=== PATIENT | male | born 1950 | race Caucasian/White ===

== ENCOUNTER 2023-07-19 09:05 | Emergency (ER) | payer MEDICARE, SELFPAY ==
--- NOTE | ~2023-07-19 | CT_ITS ---
EXAMINATION: CT ABDOMEN AND PELVIS WITHOUT CONTRAST CLINICAL INFORMATION: Right flank pain COMPARISON: None available. TECHNIQUE: Multidetector volumetric imaging was performed from the superior aspect of the liver through the pubic symphysis. Sagittal and coronal reformatted images were obtained on the technologist's workstation. This CT examination was performed using dose optimization techniques as appropriate, variously including the following: *Automated exposure control *Adjustment of mA and/or kV according to patient size (this includes techniques or standardized protocols for targeted exams where dose is matched to indication/reason for exam; i.e. extremities or head) *Use of iterative reconstruction technique DLP: 842 mGy-cm FINDINGS: LUNG BASES: The visualized lung bases are unremarkable. LIVER, GALLBLADDER, AND BILIARY TREE: The liver is normal in size, shape, and attenuation. No focal hepatic lesion or biliary ductal dilatation is present. The gallbladder is unremarkable with no evidence of radiopaque gallstones, gallbladder wall thickening, or obvious pericholecystic inflammatory changes. PANCREAS: Unremarkable. SPLEEN: Unremarkable. ADRENAL GLANDS: Unremarkable. KIDNEYS AND URETERS: The kidneys are normal in size, shape, and attenuation. No hydronephrosis, hydroureter, or calculi seen. No perinephric stranding. BLADDER: Unremarkable. GASTROINTESTINAL TRACT: Patient is status post appendectomy with surgical sutures seen in the cecum. No evidence of diverticulitis, diverticulosis. No evidence of colitis. Small bowel loops are unremarkable. Mesentery is normal. ABDOMINAL WALL: No significant hernia is appreciated. LYMPH NODES: Normal. VASCULAR: Unremarkable. PELVIC VISCERA: Unremarkable. OSSEOUS STRUCTURES: There are mild degenerative changes with narrowing canal: Phenomenon at the level of L5-S1 and mild facet arthropathy CT/CT abdomen pelvis wo IV con IMPRESSION: No explanation for right flank pain. Status post appendectomy. Fleischner guidelines were followed.
[2023-07-19 09:09] VITALS: BP 157/82; PULSE 58; RESP 16; TEMP 36.8; O2SAT 98; BMI 31.9
[2023-07-19 09:29] LABS: MANUAL DIFF FLAG NO
[2023-07-19 09:31] LABS: Basophils Absolute Auto 0.1 X10*3/uL (0.0-0.2); Basophils Percent Auto 0.9 % (0-2); Eosinophils Absolute Auto 0.2 X10*3/uL (0.0-0.4); Hematocrit 45.3 % (42.0-52.0); Hemoglobin 15.2 g/dl (14.0-18.0); Imm Gran Abs Auto 0.02 X10*3/uL (0.00-0.03); Imm Gran Pct Auto 0.3 % (0.0-0.4); Lymphocytes Absolute Auto 1.5 X10*3/uL (1.2-4.9); Lymphocytes Percent Auto 19.9 % (20-40); Mean Corpuscular HGB Conc 33.6 g/dl (31.0-36.0); Mean Corpuscular Hemoglobin 29.6 pg (27.0-33.0); Mean Corpuscular Volume 88.1 fL (80.0-98.0); Mean Platelet Volume 8.8 fL (9.4-12.4); Monocytes Absolute Auto 0.6 X10*3/uL (0.1-1.2); Monocytes Percent Auto 7.8 % (2-11); Neutrophils Absolute Auto 5.2 x10*3/uL (2.0-8.3); Neutrophils Percent Auto 68.1 % (45-73); Platelet Count 203 X10*3/uL (160-400); Red Blood Count 5.14 X10*6/uL (4.60-5.80); Red Cell Distribution Width 13.3 % (11.0-16.0); White Blood Count 7.6 X10*3/uL (4.8-10.8)
--- NOTE | 2023-07-19 09:39 | ED_ITS ---
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 He has had back surgery in the past many years ago - unsure what levels but has scar in lumbar area. He has not had kidney stones in the past. He is very uncomfortable moving and cannot bend over. He is not sure about hematuria. He did not injury his back. He has no b/b incontinence no saddle anesthesia. MD elicited complaint: back pain Pertinent past history: prior back pain Onset (ago): hour(s) (6) Timing: constant Severity: moderate Similar Symptoms Previously: No Quality: sharp Location: right flank Radiation: abdomen and groin Exacerbating factors: movement Relieving factors: none Context: unknown Associated symptoms: denies other symptoms Work related injury: No Related Data Previous Rx's Medication Instructions Recorded lidocaine 4 % topical patch 1 patch topical DAILY PRN pain #10 07/19/23 ea morphine 15 mg immediate release 15 mg PO Q6H PRN pain #15 tabs 07/19/23 tablet Allergies Allergy/AdvReac Type Severity Reaction Status Date / Time No Known Allergies Allergy Unverified 08/04/20 15:18 Review of Systems Review of Systems: Constitutional : No Weight loss, No Fever, No Chills, ENT/Mouth : No Hearing loss, No Ear Pain, No Nasal Congestion, No Sinus Pain, No Hoarseness, No sore throat, No Rhinorrhea, No Swallowing Difficulty Cardiovascular : No Chest Pain, No SOB Respiratory : No Cough, No Dyspnea Gastrointestinal : No Nausea, No Vomiting, No Diarrhea, No abdominal Pain, No Hematochezia, No Melena Genitourinary : No Dysuria, No Urinary Frequency, No Hematuria, No Urinary Incontinence, Musculoskeletal : positive back pain Skin : No Skin Lesions, No rash Neuro : No Weakness, No Numbness, No Paresthesias, no loss of bowel or bladder incontinence, no saddle anesthesia All other systems reviewed and are negative PMFSH Past Medical History Attestation statement: The following information was validated with the patient. Medical History (Updated 07/19/23 @ 11:24 by Lorie Lawrence DO) Acute CVA (cerebrovascular accident) Back pain HTN (hypertension) PFO (patent foramen ovale) Surgical History (Updated 07/19/23 @ 09:54 by Lorie Lawrence DO) Previous back surgery Social History Social History (Updated 07/19/23 @ 09:54 by Lorie Lawrence DO) Patient Tobacco Use Status: Never used Tobacco Advance Directives: Yes Advance Directives Information Provided: Yes Advance Directives on File: No Physical Exam Vital Signs: Vital Signs: Last Vital Signs Temp 98.5 F 07/19/23 10:08 Pulse 52 07/19/23 10:08 Resp 18 07/19/23 10:08 BP 142/79 H 07/19/23 10:08 Pulse Ox 96 07/19/23 10:08 O2 Del Method Room Air 07/19/23 10:08 BMI result Body Mass Index 31.9 Appearance: Alert. Oriented X3. Mild acute distress. Appears uncomfortable, pacing in room Eyes: Pupils equal, round and reactive to light. ENT: Pharynx normal. Neck: Normal inspection. Neck supple. CVS: Normal heart rate and rhythm. Pulses normal. Respiratory: No respiratory distress. Breath sounds normal. Abdomen: Soft and nontender. Back: mild R CVA ttp no mass seen no rash Skin: Skin warm and dry. Normal skin color. Normal skin turgor. Extremities: No lower extremity edema. Neuro: Oriented X 3. No motor deficit. No sensory deficit. Course Course Course Narrative: pain improved with morphine feels better _ IV dosing Medications Administered Discontinued Medications Generic Name Dose Route Start Last Admin Trade Name Wojciech PRN Reason Stop Dose Admin Morphine Sulfate 4 mg 07/19/23 09:32 07/19/23 09:49 Morphine Sulfate 4 Mg/Ml Cartridge IVPUSH 07/19/23 09:33 4 mg ONCE ONE Administration Protocol Morphine Sulfate 15 mg 07/19/23 10:34 07/19/23 11:03 Morphine Sulfate Immed Release 15 Mg Tablet PO 07/19/23 10:35 15 mg ONCE ONE Administration Ondansetron HCl 4 mg 07/19/23 09:32 07/19/23 09:49 Ondansetron Hcl 4 Mg/2 Ml Vial IVPUSH 09/01/23 09:33 4 mg ONCE ONE Administration Medical Decision Making Medical Decision Making [facility] Narrative: 73 yo male with PMH of CVA due to PFO on eliquis, HTN , prior back pain s/p lumbar surgery many years ago here with R flank pain and low back pain without cauda equina symptoms or red flags he is distal NV intact. He denies trauma. He is uncomfortable appearing. He has benign abdomen. At this time will obtain labs, UA and CT scan for renal colic. IV morphine for pain. Doubt AAA or ischemic bowel given normal abdominal exam. Differential Diagnosis Differential Diagnoses: The differential diagnosis associated with the presentation includes MSK strain, renal colic Admission/Observation Consideration of admission/observation: Escalation of care including ad mission/observation considered pain well controlled stable for DC can ambulate Lab Data [facility] Lab Attestation statement: I reviewed the patient's lab results. 07/19/23 09:18 07/19/23 09:18 Labs: Lab Results 07/19/23 07/19/23 07/19/23 Range/Units 09:18 09:18 09:22 WBC 7.6 (4.8-10.8) X10*3/uL RBC 5.14 (4.60-5.80) X10*6/uL Hgb 15.2 (14.0-18.0) g/dl Hct 45.3 (42.0-52.0) % MCV 88.1 (80.0-98.0) fL MCH 29.6 (27.0-33.0) pg MCHC 33.6 (31.0-36.0) g/dl RDW 13.3 (11.0-16.0) % Plt Count 203 (160-400) X10*3/uL MPV 8.8 L (9.4-12.4) fL Immature Gran % (Auto) 0.3 (0.0-0.4) % Neut % (Auto) 68.1 (45-73) % Lymph % (Auto) 19.9 L (20-40) % Robeson % (Auto) 7.8 (2-11) % Eos % (Auto) 3.0 (0-4) % Baso % (Auto) 0.9 (0-2) % Lymph # (Auto) 1.5 (1.2-4.9) X10*3/uL Robeson # (Auto) 0.6 (0.1-1.2) X10*3/uL Eos # (Auto) 0.2 (0.0-0.4) X10*3/uL Baso # (Auto) 0.1 (0.0-0.2) X10*3/uL Abs Immat Gran (auto) 0.02 (0.00-0.03) X10*3/uL Absolute Neuts (auto) 5.2 (2.0-8.3) x10*3/uL Absolute Nucleated RBC 0.000 (0.0-0.012) X10*3/uL Nucleated RBC % (auto) 0.0 (0.0-0.2) /100WBC Sodium 138 (135-145) mmol/L Potassium 3.9 (3.3-5.1) mmol/L Chloride 105 (96-108) mmol/L Carbon Dioxide 24 (22-29) mmol/L Anion Gap 13 (12-20) BUN 15 (9-16) mg/dL Creatinine 1.04 (0.5-1.4) mg/dL Estim Creat Clear Calc 81.0 Estimated GFR > 60 Random Glucose 133 H (60-115) mg/dL Calcium 10.9 H (8.4-10.2) mg/dL Total Bilirubin 0.4 (0.0-1.0) mg/dL AST 21 (5-37) U/L ALT 19 (0-40) U/L Alkaline Phosphatase 52 (39-117) U/L Total Protein 6.6 (6.5-8.0) g/dL Albumin 4.3 (3.5-5.0) g/dL Lipase 20 (8-78) U/L Urine Color Yellow Urine Appearance Clear Urine pH 5.5 (5.0-9.0) Ur Specific [place] 1.020 (1.005-1.025) Urine Protein Negative (Neg-Trace) mg/dL Urine Glucose (UA) Negative (Negative) mg/dL Urine Ketones Negative (Negative) mg/dL Urine Blood Negative (Negative) Urine Nitrite Negative (Negative) Ur Leukocyte Esterase Negative (Negative) Independent Interpretation I performed an independent interpretation of an: CT Scan (normal no stone seen) Radiology Impression Discussion of test interpretation with radiology: I have reviewed the radiologist's reading. Independent Historian Clinical information obtained from an independent historian. History obtained f rom or confirmed by: Spouse Prescription Management I considered prescription management with: Pain Medication and Other (morphine and lidocaine patches) Discharge Plan Discharge Clinical Impression: Acute lumbar back pain Qualifiers: Back pain laterality: right Sciatica presence: without sciatica Qualified Code(s): M54.50 - Low back pain, unspecified Patient Disposition: Home, Self-Care Instructions: Acute Low Back Pain (ED) Additional Instructions: take tylenol as well for pain. use pain patches. limit lifting to 10lbs for 2 weeks. call doctor next week for physical therapy referral. gentle slow walks but limit activity otherwise. you have to move do not just lay in bed. return for weakness, numbness, worsening pain, loss of control of bowel or bladder, fevers or any other concerns. Prescriptions: New lidocaine 4 % adhesive patch,medicated 1 patch topical DAILY PRN (Reason: pain) Qty: 10 0RF Rx Instructions: may leave on for up to 12 hrs morphine 15 mg tablet 15 mg PO Q6H PRN (Reason: pain) Qty: 15 0RF Rx Instructions: Partial Fill upon patient request.
[2023-07-19 09:44] LABS: Alanine Aminotransferase 19 U/L (0-40); Albumin Level 4.3 g/dL (3.5-5.0); Alkaline Phosphatase 52 U/L (39-117); Anion Gap 13 (12-20); Aspartate Amino Transferase 21 U/L (5-37); Bilirubin Total 0.4 mg/dL (0.0-1.0); Blood Urea Nitrogen 15 mg/dL (9-16); Calcium 10.9 mg/dL (8.4-10.2); Carbon Dioxide 24 mmol/L (22-29); Chloride 105 mmol/L (96-108); Estimated Glomerular Filt Rate > 60; Glucose Random 133 mg/dL (60-115); Potassium 3.9 mmol/L (3.3-5.1); Sodium 138 mmol/L (135-145); Total Protein 6.6 g/dL (6.5-8.0)
[2023-07-19 09:48] LABS: Appearance Urine Clear; Color Urine Yellow; Glucose Urine UA Negative (Negative); Leukocyte Esterase Urine Negative (Negative); Nitrite Urine Negative (Negative); PH 5.5 (5.0-9.0); Urine Blood Negative (Negative); Urine Ketones Negative (Negative); Urine Protein Negative (Neg-Trace)
[2023-07-19] MEDS: ondansetron HCL 4 MG/2 ML VIAL IVPUSH (09:49)
[2023-07-19] MEDS: Morphine Sulfate 4 MG/ML CARTRIDGE IVPUSH (09:49)
[2023-07-19 10:08] VITALS: BP 142/79; PULSE 52; RESP 18; TEMP 36.9; O2SAT 96
[2023-07-19 10:43] LABS: Lipase 20 U/L (8-78)
[2023-07-19] MEDS: Morphine Sulfate Immed Release 15 MG TABLET PO (11:03)
[2023-07-19 12:17] VITALS: BP 145/78; PULSE 76; RESP 19; O2SAT 98
== END 2023-07-19 12:22 | disposition home or self-care (01) ==
PROVIDERS: Emergency Provider Emergency Medicine; PCP Internal Medicine
DX: M54.50 Low back pain, unspecified (principal); R10.2 Pelvic and perineal pain; I10 Essential (primary) hypertension; Z79.01 Long term (current) use of anticoagulants; Z86.73 Personal history of transient ischemic attack (TIA), and cerebral infarction without residual deficits; Z79.899 Other long term (current) drug therapy
CPT/HCPCS: 36415; 74176; 80053; 81003; 83690; 85025; 96374; 96375; 99283; 99284; J2270; J2405